=== PATIENT | female | born 1975 | race Two or more races ===

== ENCOUNTER 2020-04-29 07:00 | Inpatient (IN) | payer OTHER ==
[~2020-04-29] VITALS: Ht 149.9 cm; Wt 63.5 kg
[~2020-04-29 07:00] MED LIST: CEFADROXIL500 MG PO; KEFLEX500 MG PO; PROVENTIL HFA6.7 GM IH; TUSICOF LIQUID120 ML PO
[2020-05-04] MEDS ORDERED: ADVIL200 MG (08:32)
[2020-05-05] MEDS ORDERED: IBUPROFEN800 MG PO (06:45)
[2020-05-05] MEDS ORDERED: NEURONTIN600 MG PO (06:45)
[2020-05-05] MEDS ORDERED: POLY119PG PO (06:46)
[2020-05-05] MEDS ORDERED: SIMETHICONE125 M1 PO (06:46)
== END 2020-05-05 14:08 | disposition home or self-care (01) | DRG 743 ==
LOC: EDSTATUS 07:00 → ADM 07:00 → O/R 05-03 05:37 → OB/GYN 05-03 05:37 → SURH 05-03 07:00 → OB/GYN 05-03 11:32
PROVIDERS: ADMIT Obstetrics & Gynecology; ATTEND Obstetrics & Gynecology
PROC: 0UT70ZZ Resection of Bilateral Fallopian Tubes, Open Approach (ICD-10-PCS; 2020-05-03)
PROC: 0UT20ZZ Resection of Bilateral Ovaries, Open Approach (ICD-10-PCS; 2020-05-03)
PROC: 0UT90ZZ Resection of Uterus, Open Approach (ICD-10-PCS; principal; 2020-05-03 07:00)
DX: D25.1 Intramural leiomyoma of uterus (principal); N84.0 Polyp of corpus uteri; Z20.828 Contact with and (suspected) exposure to other viral communicable diseases; N80.0 Endometriosis of uterus; N72 Inflammatory disease of cervix uteri